=== PATIENT | female | born 1990 | race Caucasian/White ===

== ENCOUNTER 2019-03-25 08:27 | Emergency (ER) | payer BC ==
[2019-03-25] MEDS ORDERED: Sodium Chloride 0.9% 1,000 ML IV ONE (09:08)
--- NOTE | 2019-03-25 09:13 | EDM.PDOC ---
ED HPI GENERAL MEDICAL PROBLEM - General Chief Complaint: Syncope Stated Complaint: AMB Time Seen by Provider: 03/25/19 09:08 - History of Present Illness INITIAL COMMENTS - FREE TEXT/NARRATIVE: HISTORY AND PHYSICAL: History of present illness: Patient 28-year-old white female presents after a syncopal episode when standing in line. She has had similar episodes in the past of near syncope underwriting circumstances that have been self-limited she has seen a doctor for this and it was felt to be benign there was no associated trauma she denies chest pain palpitations shortness of breath denies or other concern. Review of systems: As per history of present illness and below otherwise all systems reviewed and negative. Past medical history: As per history of present illness and as reviewed below otherwise noncontributory. Surgical history: As per history of present illness and as reviewed below otherwise noncontributory. Social history: No reported history of drug or alcohol abuse. Family history: As per history of present illness and as reviewed below otherwise noncontributory. Physical exam: HEENT: Atraumatic, normocephalic, pupils reactive, negative for conjunctival pallor or scleral icterus, mucous membranes moist, throat clear, neck supple, nontender, trachea midline. Lungs: Clear to auscultation, breath sounds equal bilaterally, chest nontender. Heart: S1S2, regular, negative for clicks, rubs, or JVD. Abdomen: Soft, nondistended, nontender. Negative for masses or hepatosplenomegaly. Negative for costovertebral tenderness. Pelvis: Stable nontender. Genitourinary: Deferred. Rectal: Deferred. Extremities: Atraumatic, negative for cords or calf pain. Neurovascular unremarkable. Neuro: Awake, alert, oriented. Cranial nerves II through XII unremarkable. Cerebellum unremarkable. Motor and sensory unremarkable throughout. Exam nonfocal. Diagnostics: CBC CMP troponin PT/INR hCG UA chest x-ray EKG orthostatic vital signs Therapeutics: Saline 1 L bolus Impression: #1 syncope probable vasovagal episode Definitive disposition and diagnosis as appropriate pending reevaluation and review of above. 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: Reports: IV/IO - Related Data Allergies Allergy/AdvReac Type Severity Reaction Status Date / Time No Known Allergies Allergy Verified 03/25/19 08:37 Home Meds: Home Meds Control 1 dose PO DAILY 03/25/19 [History] Past Medical History - Past Health History Medical/Surgical History: Denies Medical/Surgical History - Infectious Disease History Infectious Disease History: Reports: Chicken Pox, Shingles Social & Family History - Family History Family Medical History: Noncontributory - Tobacco Use Smoking Status *Q: Never Smoker - Recreational Drug Use Recreational Drug Use: No ED ROS GENERAL - Review of Systems Review Of Systems: ROS reveals no pertinent complaints other than HPI. ED EXAM, GENERAL - Physical Exam Exam: See Below (See dictation) Course - Vital Signs Last Recorded V/S: Last Vital Signs Temp 36.1 C 03/25/19 10:09 Pulse 76 03/25/19 10:09 Resp 18 03/25/19 08:32 BP 102/70 03/25/19 10:09 Pulse Ox 100 03/25/19 10:09 Orthostatic Blood Pressure [ 107/77 Standing] Orthostatic Blood Pressure [ 112/69 Sitting] Orthostatic Blood Pressure [ 102/61 Supine] - Orders/Labs/Meds Orders: Active Orders 24 hr Category Date Time Status Cardiac Monitoring [RC] . DIRECTED Care 03/25/19 09:08 Active EKG 12 Lead [EKG Documentation Completion] [RC] STAT Care 03/25/19 08:35 Active Orthostatic Vital Signs [RC] ASDIRECTED Care 03/25/19 09:09 Active COMPREHENSIVE METABOLIC PN,CMP [CHEM] Stat Lab 03/25/19 09:25 Received Labs: Laboratory Tests 03/25/19 03/25/19 03/25/19 Range/Units 09:07 09:07 09:25 WBC 9.07 (4.0-11.0) K/uL RBC 4.34 (4.30-5.90) M/uL Hgb 12.9 (12.0-16.0) g/dL Hct 38.9 (36.0-46.0) % MCV 89.6 (80.0-98.0) fL MCH 29.7 (27.0-32.0) pg MCHC 33.2 (31.0-37.0) g/dL RDW Std Deviation 41.6 (28.0-62.0) fl RDW Coeff of [place] 13 (11.0-15.0) % Plt Count 242 (150-400) K/uL MPV 10.60 (7.40-12.00) fL Neut % (Auto) 75.8 (48.0-80.0) % Lymph % (Auto) 17.6 (16.0-40.0) % [place] % (Auto) 4.9 (0.0-15.0) % Eos % (Auto) 1.5 (0.0-7.0) % Baso % (Auto) 0.2 (0.0-1.5) % Neut # (Auto) 6.9 H (1.4-5.7) K/uL Lymph # (Auto) 1.6 (0.6-2.4) K/uL [place] # (Auto) 0.4 (0.0-0.8) K/uL Eos # (Auto) 0.1 (0.0-0.7) K/uL Baso # (Auto) 0.0 (0.0-0.1) K/uL Nucleated RBC % 0.0 /100WBC Nucleated RBCs # 0 K/uL INR Urine Color YELLOW Urine Appearance CLEAR Urine pH 6.5 (5.0-8.0) Ur Specific [place] 1.010 (1.001-1.035) Urine Protein NEGATIVE (NEGATIVE) mg/dL Urine Glucose (UA) NEGATIVE (NEGATIVE) mg/dL Urine Ketones NEGATIVE (NEGATIVE) mg/dL Urine Occult Blood NEGATIVE (NEGATIVE) Urine Nitrite NEGATIVE (NEGATIVE) Urine Bilirubin NEGATIVE (NEGATIVE) Urine Urobilinogen 0.2 (<2.0) EU/dL Ur Leukocyte Esterase NEGATIVE (NEGATIVE) Urine RBC NONE SEEN (0-2/HPF) Urine WBC 0-1 (0-5/HPF) Ur Epithelial Cells RARE (NONE-FEW) Urine Bacteria RARE (NEGATIVE) Urine HCG, Qual NEGATIVE (NEGATIVE) 03/25/19 Range/Units 09:25 WBC (4.0-11.0) K/uL RBC (4.30-5.90) M/uL Hgb (12.0-16.0) g/dL Hct (36.0-46.0) % MCV (80.0-98.0) fL MCH (27.0-32.0) pg MCHC (31.0-37.0) g/dL RDW Std Deviation (28.0-62.0) fl RDW Coeff of [place] (11.0-15.0) % Plt Count (150-400) K/uL MPV (7.40-12.00) fL Neut % (Auto) (48.0-80.0) % Lymph % (Auto) (16.0-40.0) % [place] % (Auto) (0.0-15.0) % Eos % (Auto) (0.0-7.0) % Baso % (Auto) (0.0-1.5) % Neut # (Auto) (1.4-5.7) K/uL Lymph # (Auto) (0.6-2.4) K/uL [place] # (Auto) (0.0-0.8) K/uL Eos # (Auto) (0.0-0.7) K/uL Baso # (Auto) (0.0-0.1) K/uL Nucleated RBC % /100WBC Nucleated RBCs # K/uL INR 0.97 Urine Color Urine Appearance Urine pH (5.0-8.0) Ur Specific [place] (1.001-1.035) Urine Protein (NEGATIVE) mg/dL Urine Glucose (UA) (NEGATIVE) mg/dL Urine Ketones (NEGATIVE) mg/dL Urine Occult Blood (NEGATIVE) Urine Nitrite (NEGATIVE) Urine Bilirubin (NEGATIVE) Urine Urobilinogen (<2.0) EU/dL Ur Leukocyte Esterase (NEGATIVE) Urine RBC (0-2/HPF) Urine WBC (0-5/HPF) Ur Epithelial Cells (NONE-FEW) Urine Bacteria (NEGATIVE) Urine HCG, Qual (NEGATIVE) Meds: Medications Discontinued Medications Generic Name Dose Route Start Last Admin Trade Name Freq PRN Reason Stop Dose Admin Sodium Chloride 1,000 mls @ 999 mls/hr 03/25/19 09:08 03/25/19 09:25 Normal Saline IV 03/25/19 10:08 999 mls/hr BOLUS ONE Administration Departure - Departure Time of Disposition: 10:14 Disposition: Home, Self-Care 01 Condition: Good Clinical Impression: Syncope - Discharge Information Referrals: PCP,None [Primary Care Provider] - Forms: ED Department Discharge Additional Instructions: The following information is given to patients seen in the emergency department who are being discharged to home. This information is to outline your options for follow-up care. We provide all patients seen in our emergency department with a follow-up referral. The need for follow-up, as well as the timing and circumstances, are variable depending upon the specifics of your emergency department visit. If you don't have a primary care physician on staff, we will provide you with a referral. We always advise you to contact your personal physician following an emergency department visit to inform them of the circumstance of the visit and for follow-up with them and/or the need for any referrals to a consulting specialist. The emergency department will also refer you to a specialist when appropriate. This referral assures that you have the opportunity for followup care with a specialist. All of these measure are taken in an effort to provide you with optimal care, which includes your followup. Under all circumstances we always encourage you to contact your private physician who remains a resource for coordinating your care. When calling for followup care, please make the office aware that this follow-up is from your recent emergency room visit. If for any reason you are refused follow-up, please contact the [facility] emergency department at and asked to speak to the emergency department charge nurse. Follow-up primary medical doctor as discussed push fluids return as needed as discussed - My Orders Last 24 Hours: My Active Orders 03/25/19 08:35 EKG 12 Lead [EKG Documentation Completion] [RC] STAT 03/25/19 09:08 Cardiac Monitoring [RC] . DIRECTED 03/25/19 09:09 Orthostatic Vital Signs [RC] ASDIRECTED 03/25/19 09:25 COMPREHENSIVE METABOLIC PN,CMP [CHEM] Stat - Assessment/Plan Last 24 Hours: My Active Orders 03/25/19 08:35 EKG 12 Lead [EKG Documentation Completion] [RC] STAT 03/25/19 09:08 Cardiac Monitoring [RC] . DIRECTED 03/25/19 09:09 Orthostatic Vital Signs [RC] ASDIRECTED 03/25/19 09:25 COMPREHENSIVE METABOLIC PN,CMP [CHEM] Stat
--- NOTE | 2019-03-25 10:03 | CR ---
EXAMINATION: Portable chest radiograph. HISTORY: Syncope. FINDINGS: The trachea is midline. The cardiomediastinal silhouette is within normal limits. No pulmonary infiltrates, effusions or pneumothorax. Osseous structures appear unremarkable. IMPRESSION: No acute cardiopulmonary process.
[2019-03-25 10:12] LABS: CHLORIDE,CL 107 mmol/L (98-107); SODIUM,NA 144 mmol/L (136-145)
== END 2019-03-25 12:52 | disposition home or self-care (01) ==
LOC: MW.ED 08:27
DX: R55 Syncope and collapse (principal); Z79.899 Other long term (current) drug therapy
CPT/HCPCS: 36415; 71045; 80053; 81001; 81025; 85025; 85610; 93005; 96360; 99284; J7040

== ENCOUNTER 2019-04-11 17:27 | Observation (INO) | payer BC ==
[2019-04-11] MEDS ORDERED: Sodium Chloride 0.9% 1,000 ML IV ONE (17:47)
[2019-04-11] MEDS: Sodium Chloride 0.9% 1,000 ML IV ONE ×2 (17:47→17:49)
[2019-04-11 18:13] LABS: CHLORIDE,CL 106 mmol/L (98-107); SODIUM,NA 142 mmol/L (136-145)
--- NOTE | 2019-04-11 19:04 | EDM.PDOC ---
ED HPI GENERAL MEDICAL PROBLEM - General Chief Complaint: Syncope Stated Complaint: FAINTING Time Seen by Provider: 04/11/19 19:02 Source of Information: Reports: Patient, EMS - History of Present Illness INITIAL COMMENTS - FREE TEXT/NARRATIVE: HISTORY AND PHYSICAL: History of present illness: []Patient was recently seen in the ER for syncopal episode She was at follow-up for syncope with her primary care B being drawn and she again had a syncopal episode which is a vagal however her blood pressure has been quite low while she was here on several occasions She is alert interactive no fever nausea vomiting chills sweats no chest pain shortness breath headache dizziness palpitation no bowel or urine symptoms Review of systems: As per history of present illness and below otherwise all systems reviewed and negative. Past medical history: As per history of present illness and as reviewed below otherwise noncontributory. Surgical history: As per history of present illness and as reviewed below otherwise noncontributory. Social history: No reported history of drug or alcohol abuse. Family history: As per history of present illness and as reviewed below otherwise noncontributory. Physical exam: HEENT: Atraumatic, normocephalic, pupils reactive, negative for conjunctival pallor or scleral icterus, mucous membranes moist, throat clear, neck supple, nontender, trachea midline. Lungs: Clear to auscultation, breath sounds equal bilaterally, chest nontender. Heart: S1S2, regular, negative for clicks, rubs, or JVD. Abdomen: Soft, nondistended, nontender. Negative for masses or hepatosplenomegaly. Negative for costovertebral tenderness. Pelvis: Stable nontender. Genitourinary: Deferred. Rectal: Deferred. Extremities: Atraumatic, negative for cords or calf pain. Neurovascular unremarkable. Neuro: Awake, alert, oriented. Cranial nerves II through XII unremarkable. Cerebellum unremarkable. Motor and sensory unremarkable throughout. Exam nonfocal. Diagnostics: [TBC CMP UA troponin blood cultures Orthostatics EKG Chest [address] no contrast ] Therapeutics: [ normal saline pt will be signed out to follow lab and imaging/dispo ] Impression Syncope Hypotension ] Definitive disposition and diagnosis as appropriate pending reevaluation and review of above. - Related Data Allergies Allergy/AdvReac Type Severity Reaction Status Date / Time No Known Allergies Allergy Verified 04/11/19 17:38 Home Meds: Home Meds Control 1 dose PO DAILY 03/25/19 [History] Past Medical History - Past Health History Medical/Surgical History: Denies Medical/Surgical History HEENT History: Reports: Impaired Vision, Other (See Below) Other HEENT History: wears glasses Cardiovascular History: Reports: Syncope - Infectious Disease History Infectious Disease History: Reports: Chicken Pox, Shingles - Past Surgical History HEENT Surgical History: Reports: Oral Surgery Social & Family History - Family History Family Medical History: Noncontributory - Tobacco Use Smoking Status *Q: Never Smoker - Recreational Drug Use Recreational Drug Use: No ED ROS GENERAL - Review of Systems Review Of Systems: See Below ED EXAM, GENERAL - Physical Exam Exam: See Below Course - Vital Signs Last Recorded V/S: Last Vital Signs Temp 97.4 F 04/11/19 17:27 Pulse 66 04/11/19 17:27 Resp 18 04/11/19 17:27 BP 60/32 L 04/11/19 17:52 Pulse Ox 100 04/11/19 17:27 - Orders/Labs/Meds Orders: Active Orders 24 hr Category Date Time Status Blood Glucose Check, Bedside [RC] ONETIME Care 04/11/19 17:51 Active EKG Documentation Completion [RC] STAT Care 04/11/19 17:31 Active Chest 1V Frontal [CR] Stat Exams 04/11/19 17:32 Ordered Head wo Cont [CT] Stat Exams 04/11/19 17:39 Ordered CULTURE BLOOD [BC] Stat Lab 04/11/19 18:52 Ordered CULTURE BLOOD [BC] Stat Lab 04/11/19 18:52 Ordered HCG QUALITATIVE,URINE [URCHEM] Stat Lab 04/11/19 17:32 Ordered UA RFX AYANA AND CULT IF INDIC [URIN] Stat Lab 04/11/19 17:31 Ordered Blood Culture x2 Reflex Set [OM.PC] Stat Oth 04/11/19 18:52 Ordered Labs: Laboratory Tests 04/11/19 04/11/19 Range/Units 17:38 17:38 WBC 7.13 (4.0-11.0) K/uL RBC 4.34 (4.30-5.90) M/uL Hgb 12.8 (12.0-16.0) g/dL Hct 38.7 (36.0-46.0) % MCV 89.2 (80.0-98.0) fL MCH 29.5 (27.0-32.0) pg MCHC 33.1 (31.0-37.0) g/dL RDW Std Deviation 41.8 (28.0-62.0) fl RDW Coeff of [place] 13 (11.0-15.0) % Plt Count 279 (150-400) K/uL MPV 10.00 (7.40-12.00) fL Neut % (Auto) 44.7 L (48.0-80.0) % Lymph % (Auto) 47.3 H (16.0-40.0) % [place] % (Auto) 6.2 (0.0-15.0) % Eos % (Auto) 1.5 (0.0-7.0) % Baso % (Auto) 0.3 (0.0-1.5) % Neut # (Auto) 3.2 (1.4-5.7) K/uL Lymph # (Auto) 3.4 H (0.6-2.4) K/uL [place] # (Auto) 0.4 (0.0-0.8) K/uL Eos # (Auto) 0.1 (0.0-0.7) K/uL Baso # (Auto) 0.0 (0.0-0.1) K/uL Nucleated RBC % 0.0 /100WBC Nucleated RBCs # 0 K/uL Sodium 142 (136-145) mmol/L Potassium 3.1 L (3.5-5.1) mmol/L Chloride 106 (98-107) mmol/L Carbon Dioxide 23.0 (21.0-32.0) mmol/L BUN 13 (7.0-18.0) mg/dL Creatinine 1.0 (0.6-1.0) mg/dL Est Cr Clr Drug Dosing 71.68 mL/min Estimated GFR (MDRD) > 60.0 ml/min Glucose 114 H (74-106) mg/dL Calcium 9.7 (8.5-10.1) mg/dL Total Bilirubin 0.3 (0.2-1.0) mg/dL AST 13 L (15-37) IU/L ALT 17 (14-63) IU/L Alkaline Phosphatase 52 (46-116) U/L Troponin I < 0.050 (0.000-0.056) ng/mL Total Protein 7.7 (6.4-8.2) g/dL Albumin 4.0 (3.4-5.0) g/dL Globulin 3.7 (2.6-4.0) g/dL Albumin/Globulin Ratio 1.1 (0.9-1.6) Meds: Medications Discontinued Medications Generic Name Dose Route Start Last Admin Trade Name Freq PRN Reason Stop Dose Admin Sodium Chloride 1,000 mls @ 999 mls/hr 04/11/19 17:31 04/11/19 17:49 Normal Saline IV 04/11/19 18:31 999 mls/hr STAT ONE Administration Sodium Chloride 1,000 mls @ 999 mls/hr 04/11/19 17:47 04/11/19 17:50 Normal Saline IV 04/11/19 18:47 999 mls/hr .Bolus ONE Administration Departure - Departure Time of Disposition: 19:05 Disposition: Still A Patient 29 Clinical Impression: Syncope, Hypotension - Discharge Information Referrals: PCP,None [Primary Care Provider] - Forms: ED Department Discharge - My Orders Last 24 Hours: My Active Orders 04/11/19 17:31 EKG Documentation Completion [RC] STAT UA RFX AYANA AND CULT IF INDIC [URIN] Stat 04/11/19 17:32 Chest 1V Frontal [CR] Stat HCG QUALITATIVE,URINE [URCHEM] Stat 04/11/19 17:39 Head wo Cont [CT] Stat 04/11/19 17:51 Blood Glucose Check, Bedside [RC] ONETIME 04/11/19 18:52 CULTURE BLOOD [BC] Stat CULTURE BLOOD [BC] Stat Blood Culture x2 Reflex Set [OM.PC] Stat - Assessment/Plan Last 24 Hours: My Active Orders 04/11/19 17:31 EKG Documentation Completion [RC] STAT UA RFX AYANA AND CULT IF INDIC [URIN] Stat 04/11/19 17:32 Chest 1V Frontal [CR] Stat HCG QUALITATIVE,URINE [URCHEM] Stat 04/11/19 17:39 Head wo Cont [CT] Stat 04/11/19 17:51 Blood Glucose Check, Bedside [RC] ONETIME 04/11/19 18:52 CULTURE BLOOD [BC] Stat CULTURE BLOOD [BC] Stat Blood Culture x2 Reflex Set [OM.PC] Stat
--- NOTE | 2019-04-11 20:00 | CT ---
INDICATION: Two recent syncopal episodes.. TECHNIQUE: CT Head without contrast. COMPARISON: None. FINDINGS: CSF spaces: Within normal limits for age. Brain parenchyma: The elder-white differentiation is normal. No sign of mass, hemorrhage, or midline shift. Skull base and calvarium: Small dependent fluid levels in the maxillary sinuses bilaterally.. The visualized orbits are grossly unremarkable. No skull fractures. . IMPRESSION: No intracranial finding. Small air-fluid levels in the dependent maxillary sinuses may be acute sinusitis. Posttraumatic etiology should be excluded clinically. Please note that all CT scans at this facility use dose modulation, iterative reconstruction, and/or weight-based dosing when appropriate to reduce radiation dose to as low as reasonably achievable. Dictated by Donte Santiago MD @ Apr 11 2019 7:56PM Signed by Dr. Donte Santiago @ Apr 11 2019 7:58PM
--- NOTE | 2019-04-11 20:01 | CR ---
INDICATION: Syncope TECHNIQUE: Chest 1 views COMPARISON: 03/25/2019 FINDINGS: Cardiovascular and mediastinum: Heart size and vasculature are normal in caliber and appearance. Lungs and pleural spaces: Lungs are clear. No sign of infiltrate or mass. No sign of pleural effusion. No pneumothorax. Bones and soft tissues: No significant findings. IMPRESSION: No acute findings and no significant changes from the prior exam. Dictated by Mario Nowak MD @ Apr 11 2019 7:58PM Signed by Dr. Mario Nowak @ Apr 11 2019 8:00PM
[2019-04-11] MEDS: Sodium Chloride 0.9% 1,000 ML IV SCH (20:17)
[2019-04-11] MEDS ORDERED: Potassium Chloride 20 MEQ Tab.ER PO ONE (20:17)
--- NOTE | 2019-04-11 20:45 | PCM.HP ---
H&P History of Present Illness - General Admit Problem/Dx: Admission Diagnosis/Problem Admission Diagnosis/Problem Syncope - History of Present Illness Initial Comments - Free Text/Narative: Patient presented to clinic today with a complaint of syncope three weeks ago. Patient ate at [employer] and passed out while standing up to go pay for breakfast. Patient report she felt hot then cold and vision blurred before passing out. While in clinic getting blood drawn she passed out again while sitting. in the ED she was noted to have a blood pressure of 54/27 which did improve to the 100s. She did receive a liter of fluid. CT head and chest x- ray were negative. Patient reports passing out about every five years at home. - Related Data Allergies/Adverse Reactions: Allergies Allergy/AdvReac Type Severity Reaction Status Date / Time No Known Allergies Allergy Verified 04/11/19 17:38 Home Medications: Home Meds Control 1 dose PO DAILY 03/25/19 [History] Past Medical History - Past Health History Medical/Surgical History: Denies Medical/Surgical History HEENT History: Reports: Impaired Vision, Other (See Below) Other HEENT History: wears glasses Cardiovascular History: Reports: Syncope - Infectious Disease History Infectious Disease History: Reports: Chicken Pox, Shingles - Past Surgical History HEENT Surgical History: Reports: Oral Surgery Social & Family History - Family History Family Medical History: Noncontributory - Tobacco Use Smoking Status *Q: Never Smoker - Recreational Drug Use Recreational Drug Use: No H&P Review of Systems - Review of Systems: Review Of Systems: ROS reveals no pertinent complaints other than HPI. Exam - Vital Signs Vital Signs: Last Vital Signs Temp 36.3 C 04/11/19 17:27 Pulse 66 04/11/19 17:27 Resp 16 04/11/19 19:05 BP 103/68 04/11/19 19:05 Pulse Ox 99 04/11/19 19:05 Orthostatic Blood Pressure [ 93/69 Standing] Orthostatic Blood Pressure [ 106/68 Sitting] Orthostatic Blood Pressure [ 113/72 Supine] Weight: 61.235 kg - Exam General: Alert, Oriented HEENT: Mucosa Moist & [place] Neck: Supple Lungs: Clear to Auscultation, Normal Respiratory Effort Cardiovascular: Regular Rate, Regular Rhythm GI/Abdominal Exam: Normal Bowel Sounds, Soft, Non-Tender Extremities: Normal Range of Motion, Non-Tender Skin: Warm, Dry, Intact Neurological: Cranial Nerves Intact. No: Focal Deficit - Patient Data Lab Results Last 24 hrs: Laboratory Results - last 24 hr 04/11/19 04/11/19 04/11/19 Range/Units 17:38 17:38 19:00 WBC 7.13 (4.0-11.0) K/uL RBC 4.34 (4.30-5.90) M/uL Hgb 12.8 (12.0-16.0) g/dL Hct 38.7 (36.0-46.0) % MCV 89.2 (80.0-98.0) fL MCH 29.5 (27.0-32.0) pg MCHC 33.1 (31.0-37.0) g/dL RDW Std Deviation 41.8 (28.0-62.0) fl RDW Coeff of Barby 13 (11.0-15.0) % Plt Count 279 (150-400) K/uL MPV 10.00 (7.40-12.00) fL Neut % (Auto) 44.7 L (48.0-80.0) % Lymph % (Auto) 47.3 H (16.0-40.0) % [place] % (Auto) 6.2 (0.0-15.0) % Eos % (Auto) 1.5 (0.0-7.0) % Baso % (Auto) 0.3 (0.0-1.5) % Neut # (Auto) 3.2 (1.4-5.7) K/uL Lymph # (Auto) 3.4 H (0.6-2.4) K/uL [place] # (Auto) 0.4 (0.0-0.8) K/uL Eos # (Auto) 0.1 (0.0-0.7) K/uL Baso # (Auto) 0.0 (0.0-0.1) K/uL Nucleated RBC % 0.0 /100WBC Nucleated RBCs # 0 K/uL Sodium 142 (136-145) mmol/L Potassium 3.1 L (3.5-5.1) mmol/L Chloride 106 (98-107) mmol/L Carbon Dioxide 23.0 (21.0-32.0) mmol/L BUN 13 (7.0-18.0) mg/dL Creatinine 1.0 (0.6-1.0) mg/dL Est Cr Clr Drug Dosing 71.68 mL/min Estimated GFR (MDRD) > 60.0 ml/min Glucose 114 H (74-106) mg/dL Calcium 9.7 (8.5-10.1) mg/dL Magnesium (1.8-2.4) mg/dL Total Bilirubin 0.3 (0.2-1.0) mg/dL AST 13 L (15-37) IU/L ALT 17 (14-63) IU/L Alkaline Phosphatase 52 (46-116) U/L Troponin I < 0.050 (0.000-0.056) ng/mL Total Protein 7.7 (6.4-8.2) g/dL Albumin 4.0 (3.4-5.0) g/dL Globulin 3.7 (2.6-4.0) g/dL Albumin/Globulin Ratio 1.1 (0.9-1.6) Urine Color YELLOW Urine Appearance CLEAR Urine pH 6.5 (5.0-8.0) Ur Specific [place] <= 1.005 (1.001-1.035) Urine Protein NEGATIVE (NEGATIVE) mg/dL Urine Glucose (UA) NEGATIVE (NEGATIVE) mg/dL Urine Ketones NEGATIVE (NEGATIVE) mg/dL Urine Occult Blood NEGATIVE (NEGATIVE) Urine Nitrite NEGATIVE (NEGATIVE) Urine Bilirubin NEGATIVE (NEGATIVE) Urine Urobilinogen 0.2 (<2.0) EU/dL Ur Leukocyte Esterase NEGATIVE (NEGATIVE) Urine HCG, Qual (NEGATIVE) 04/11/19 04/11/19 Range/Units 19:00 19:20 WBC (4.0-11.0) K/uL RBC (4.30-5.90) M/uL Hgb (12.0-16.0) g/dL Hct (36.0-46.0) % MCV (80.0-98.0) fL MCH (27.0-32.0) pg MCHC (31.0-37.0) g/dL RDW Std Deviation (28.0-62.0) fl RDW Coeff of Barby (11.0-15.0) % Plt Count (150-400) K/uL MPV (7.40-12.00) fL Neut % (Auto) (48.0-80.0) % Lymph % (Auto) (16.0-40.0) % [place] % (Auto) (0.0-15.0) % Eos % (Auto) (0.0-7.0) % Baso % (Auto) (0.0-1.5) % Neut # (Auto) (1.4-5.7) K/uL Lymph # (Auto) (0.6-2.4) K/uL [place] # (Auto) (0.0-0.8) K/uL Eos # (Auto) (0.0-0.7) K/uL Baso # (Auto) (0.0-0.1) K/uL Nucleated RBC % /100WBC Nucleated RBCs # K/uL Sodium (136-145) mmol/L Potassium (3.5-5.1) mmol/L Chloride (98-107) mmol/L Carbon Dioxide (21.0-32.0) mmol/L BUN (7.0-18.0) mg/dL Creatinine (0.6-1.0) mg/dL Est Cr Clr Drug Dosing mL/min Estimated GFR (MDRD) ml/min Glucose (74-106) mg/dL Calcium (8.5-10.1) mg/dL Magnesium 1.8 (1.8-2.4) mg/dL Total Bilirubin (0.2-1.0) mg/dL AST (15-37) IU/L ALT (14-63) IU/L Alkaline Phosphatase (46-116) U/L Troponin I (0.000-0.056) ng/mL Total Protein (6.4-8.2) g/dL Albumin (3.4-5.0) g/dL Globulin (2.6-4.0) g/dL Albumin/Globulin Ratio (0.9-1.6) Urine Color Urine Appearance Urine pH (5.0-8.0) Ur Specific [place] (1.001-1.035) Urine Protein (NEGATIVE) mg/dL Urine Glucose (UA) (NEGATIVE) mg/dL Urine Ketones (NEGATIVE) mg/dL Urine Occult Blood (NEGATIVE) Urine Nitrite (NEGATIVE) Urine Bilirubin (NEGATIVE) Urine Urobilinogen (<2.0) EU/dL Ur Leukocyte Esterase (NEGATIVE) Urine HCG, Qual NEGATIVE (NEGATIVE) Result Diagrams: 04/11/19 17:38 04/11/19 17:38 Problem List Initiated/Reviewed/Updated: Yes Orders Last 24hrs: Active Orders 24 hr Category Date Time Status Patient Status [ADT] Stat ADT 04/11/19 19:54 Active Antiembolic Devices [RC] PER UNIT ROUTINE Care 04/11/19 20:40 Ordered Blood Glucose Check, Bedside [RC] ONETIME Care 04/11/19 17:51 Active Cardiac Monitoring [RC] CONTINUOUS Care 04/11/19 20:38 Ordered EKG Documentation Completion [RC] AM Care 04/11/19 20:37 Ordered EKG Documentation Completion [RC] STAT Care 04/11/19 17:31 Active Orthostatic Vital Signs [RC] ASDIRECTED Care 04/11/19 19:40 Active Oxygen Therapy [RC] PRN Care 04/11/19 20:37 Ordered Up ad Vicky [RC] ASDIRECTED Care 04/11/19 20:37 Ordered VTE/DVT Education [RC] PER UNIT ROUTINE Care 04/11/19 20:37 Ordered Vital Signs [RC] Q4H Care 04/11/19 20:37 Ordered Regular Diet [DIET] Diet 04/11/19 Breakfast Ordered Echo Comp wo Cont [US] Routine Exams 04/11/19 20:37 Ordered CULTURE BLOOD [BC] Stat Lab 04/11/19 18:52 Ordered CULTURE BLOOD [BC] Stat Lab 04/11/19 19:20 Received Sodium Chloride 0.9% [Normal Saline] 1,000 ml Med 04/11/19 20:15 Active IV ASDIRECTED Blood Culture x2 Reflex Set [OM.PC] Stat Oth 04/11/19 18:52 Ordered Sequential Compression Device [OM.PC] Per Unit Routine Oth 04/11/19 20:37 Ordered Resuscitation Status Routine Resus Stat 04/11/19 20:37 Ordered Medication Orders Sodium Chloride (Normal Saline) 1,000 mls @ 150 mls/hr IV ASDIRECTED VERN Last Admin: 04/11/19 20:17 Dose: 150 mls/hr Assessment/Plan Comment:: 28 yo female admitted for syncope. We will monitor overnight on telemetry. Echocardiogram ordered.
[2019-04-12] MEDS: Sodium Chloride 0.9% 1,000 ML IV SCH ×2 (03:00→09:46)
[2019-04-12 08:51] LABS: CHLORIDE,CL 108 mmol/L (98-107); SODIUM,NA 140 mmol/L (136-145)
--- NOTE | 2019-04-12 16:06 | PCM.DCSUM1 ---
Discharge Summary - Hospital Course Brief History: Patient presented to clinic today with a complaint of syncope three weeks ago. Patient ate at [employer] and passed out while standing up to go pay for breakfast. Patient report she felt hot then cold and vision blurred before passing out. While in clinic getting blood drawn she passed out again while sitting. in the ED she was noted to have a blood pressure of 54/27 which did improve to the 100s. She did receive a liter of fluid. CT head and chest x -ray were negative. Patient reports passing out about every five years at home. Diagnosis: Stroke: No - Discharge Data Discharge Date: 04/12/19 Discharge Disposition: Home, Self-Care 01 Condition: Good - Discharge Diagnosis/Problem(s) (1) Hypotension SNOMED Code(s): 02478248 ICD Code: I95.9 - HYPOTENSION, UNSPECIFIED Status: Acute Current Visit: Yes (2) Syncope SNOMED Code(s): 972445808 ICD Code: R55 - SYNCOPE AND COLLAPSE Status: Acute Current Visit: Yes - Patient Instructions Diet: Regular Diet as Tolerated Activity: As Tolerated Driving: Do Not Drive Showering/Bathing: May Shower Notify Provider of: Fever, Increased Pain, Swelling and Redness, Drainage, Nausea and/or Vomiting Other/Special Instructions: Order for Zio pacth written please call to arrange appointment for this to be placed once you return to the by calling respiratory therapy, . - Discharge Plan *PRESCRIPTION DRUG MONITORING PROGRAM REVIEWED*: Not Applicable *COPY OF PRESCRIPTION DRUG MONITORING REPORT IN PATIENT DANA: Not Applicable Home Medications: Home Meds Control 1 dose PO DAILY 03/25/19 [History] Oxygen Therapy Mode: Room Air Patient Handouts: Hypotension, [id number], Syncope, [id number] Referrals: [facility] [Outside] Alisa Enriquez NP [Ordering Only Provider] - 04/18/19 12:45 pm - Discharge Summary/Plan Comment DC Time >30 min.: No Discharge Summary/Plan Comment: Admitting Diagnoses: Syncope Discharge Diagnoses: Suspected Vasovagal syncopal episode Raoul Farris was admitted and treated with potassium supplementation and IVFs overnight. No recurrent episodes of syncope. No arrhythmias noted on telemetry. BPs stable and orthostatic VS WNL this morning. Dr Javier was consulted to evaluate due to QTc and syncope. Please see his consultation. Kaleigh will return for outpatient carotid ultrasound and for ZIO patch to be placed for further monitoring. She will be scheduled to see Dr Javier after Zio patch assessment and to follow up with PCP in 1 week prior to leaving the country for trip to insure she is stable. She is to return to ED or clinic if concerns should arise. - General Info Date of Service: 04/12/19 Admission Dx/Problem (Free Text: Admission Diagnosis/Problem Admission Diagnosis/Problem Syncope Subjective Update: Feeling good this morning, no concerns. Very eager to be discharged home. Functional Status: Reports: Pain Controlled, Tolerating Diet, Ambulating, Urinating - Review of Systems General: Reports: No Symptoms. Denies: Fever, Weakness, Fatigue HEENT: Reports: No Symptoms. Denies: Headaches, Sore Throat Pulmonary: Reports: No Symptoms. Denies: Shortness of Breath Cardiovascular: Reports: No Symptoms. Denies: Chest Pain Gastrointestinal: Reports: No Symptoms. Denies: Abdominal Pain, Nausea, Vomiting Genitourinary: Reports: No Symptoms. Denies: Dysuria, Frequency, Burning Musculoskeletal: Reports: No Symptoms Skin: Reports: No Symptoms Neurological: Reports: No Symptoms Psychiatric: Reports: No Symptoms - Patient Data Vitals - Most Recent: Last Vital Signs Temp 97.7 F 04/12/19 12:00 Pulse 79 04/12/19 12:00 Resp 16 04/12/19 12:00 BP 107/65 04/12/19 12:00 Pulse Ox 99 04/12/19 12:00 Orthostatic Blood Pressure [ 104/58 Standing] Orthostatic Blood Pressure [ 108/67 Sitting] Orthostatic Blood Pressure [ 113/71 Supine] Weight - Most Recent: 61.235 kg I&O - Last 24 hours: Intake & Output 04/12/19 04/12/19 04/12/19 06:59 14:59 22:59 Intake Total 1386 Balance 1386 Lab Results - Last 24 hrs: Laboratory Results - last 24 hr 04/11/19 04/11/19 04/11/19 Range/Units 17:32 17:38 17:38 WBC 7.13 (4.0-11.0) K/uL RBC 4.34 (4.30-5.90) M/uL Hgb 12.8 (12.0-16.0) g/dL Hct 38.7 (36.0-46.0) % MCV 89.2 (80.0-98.0) fL MCH 29.5 (27.0-32.0) pg MCHC 33.1 (31.0-37.0) g/dL RDW Std Deviation 41.8 (28.0-62.0) fl RDW Coeff of Barby 13 (11.0-15.0) % Plt Count 279 (150-400) K/uL MPV 10.00 (7.40-12.00) fL Neut % (Auto) 44.7 L (48.0-80.0) % Lymph % (Auto) 47.3 H (16.0-40.0) % [place] % (Auto) 6.2 (0.0-15.0) % Eos % (Auto) 1.5 (0.0-7.0) % Baso % (Auto) 0.3 (0.0-1.5) % Neut # (Auto) 3.2 (1.4-5.7) K/uL Lymph # (Auto) 3.4 H (0.6-2.4) K/uL [place] # (Auto) 0.4 (0.0-0.8) K/uL Eos # (Auto) 0.1 (0.0-0.7) K/uL Baso # (Auto) 0.0 (0.0-0.1) K/uL Nucleated RBC % 0.0 /100WBC Nucleated RBCs # 0 K/uL Sodium 142 (136-145) mmol/L Potassium 3.1 L (3.5-5.1) mmol/L Chloride 106 (98-107) mmol/L Carbon Dioxide 23.0 (21.0-32.0) mmol/L BUN 13 (7.0-18.0) mg/dL Creatinine 1.0 (0.6-1.0) mg/dL Est Cr Clr Drug Dosing 71.68 mL/min Estimated GFR (MDRD) > 60.0 ml/min Glucose 114 H (74-106) mg/dL POC Glucose 110 (60-110) mg/dL Calcium 9.7 (8.5-10.1) mg/dL Magnesium (1.8-2.4) mg/dL Total Bilirubin 0.3 (0.2-1.0) mg/dL AST 13 L (15-37) IU/L ALT 17 (14-63) IU/L Alkaline Phosphatase 52 (46-116) U/L Troponin I < 0.050 (0.000-0.056) ng/mL Total Protein 7.7 (6.4-8.2) g/dL Albumin 4.0 (3.4-5.0) g/dL Globulin 3.7 (2.6-4.0) g/dL Albumin/Globulin Ratio 1.1 (0.9-1.6) Urine Color Urine Appearance Urine pH (5.0-8.0) Ur Specific [place] (1.001-1.035) Urine Protein (NEGATIVE) mg/dL Urine Glucose (UA) (NEGATIVE) mg/dL Urine Ketones (NEGATIVE) mg/dL Urine Occult Blood (NEGATIVE) Urine Nitrite (NEGATIVE) Urine Bilirubin (NEGATIVE) Urine Urobilinogen (<2.0) EU/dL Ur Leukocyte Esterase (NEGATIVE) Urine HCG, Qual (NEGATIVE) 04/11/19 04/11/19 04/11/19 Range/Units 19:00 19:00 19:20 WBC (4.0-11.0) K/uL RBC (4.30-5.90) M/uL Hgb (12.0-16.0) g/dL Hct (36.0-46.0) % MCV (80.0-98.0) fL MCH (27.0-32.0) pg MCHC (31.0-37.0) g/dL RDW Std Deviation (28.0-62.0) fl RDW Coeff of Barby (11.0-15.0) % Plt Count (150-400) K/uL MPV (7.40-12.00) fL Neut % (Auto) (48.0-80.0) % Lymph % (Auto) (16.0-40.0) % [place] % (Auto) (0.0-15.0) % Eos % (Auto) (0.0-7.0) % Baso % (Auto) (0.0-1.5) % Neut # (Auto) (1.4-5.7) K/uL Lymph # (Auto) (0.6-2.4) K/uL [place] # (Auto) (0.0-0.8) K/uL Eos # (Auto) (0.0-0.7) K/uL Baso # (Auto) (0.0-0.1) K/uL Nucleated RBC % /100WBC Nucleated RBCs # K/uL Sodium (136-145) mmol/L Potassium (3.5-5.1) mmol/L Chloride (98-107) mmol/L Carbon Dioxide (21.0-32.0) mmol/L BUN (7.0-18.0) mg/dL Creatinine (0.6-1.0) mg/dL Est Cr Clr Drug Dosing mL/min Estimated GFR (MDRD) ml/min Glucose (74-106) mg/dL POC Glucose (60-110) mg/dL Calcium (8.5-10.1) mg/dL Magnesium 1.8 (1.8-2.4) mg/dL Total Bilirubin (0.2-1.0) mg/dL AST (15-37) IU/L ALT (14-63) IU/L Alkaline Phosphatase (46-116) U/L Troponin I (0.000-0.056) ng/mL Total Protein (6.4-8.2) g/dL Albumin (3.4-5.0) g/dL Globulin (2.6-4.0) g/dL Albumin/Globulin Ratio (0.9-1.6) Urine Color YELLOW Urine Appearance CLEAR Urine pH 6.5 (5.0-8.0) Ur Specific [place] <= 1.005 (1.001-1.035) Urine Protein NEGATIVE (NEGATIVE) mg/dL Urine Glucose (UA) NEGATIVE (NEGATIVE) mg/dL Urine Ketones NEGATIVE (NEGATIVE) mg/dL Urine Occult Blood NEGATIVE (NEGATIVE) Urine Nitrite NEGATIVE (NEGATIVE) Urine Bilirubin NEGATIVE (NEGATIVE) Urine Urobilinogen 0.2 (<2.0) EU/dL Ur Leukocyte Esterase NEGATIVE (NEGATIVE) Urine HCG, Qual NEGATIVE (NEGATIVE) 04/12/19 Range/Units 08:26 WBC (4.0-11.0) K/uL RBC (4.30-5.90) M/uL Hgb (12.0-16.0) g/dL Hct (36.0-46.0) % MCV (80.0-98.0) fL MCH (27.0-32.0) pg MCHC (31.0-37.0) g/dL RDW Std Deviation (28.0-62.0) fl RDW Coeff of Barby (11.0-15.0) % Plt Count (150-400) K/uL MPV (7.40-12.00) fL Neut % (Auto) (48.0-80.0) % Lymph % (Auto) (16.0-40.0) % Bent % (Auto) (0.0-15.0) % Eos % (Auto) (0.0-7.0) % Baso % (Auto) (0.0-1.5) % Neut # (Auto) (1.4-5.7) K/uL Lymph # (Auto) (0.6-2.4) K/uL Bent # (Auto) (0.0-0.8) K/uL Eos # (Auto) (0.0-0.7) K/uL Baso # (Auto) (0.0-0.1) K/uL Nucleated RBC % /100WBC Nucleated RBCs # K/uL Sodium 140 (136-145) mmol/L Potassium 4.1 (3.5-5.1) mmol/L Chloride 108 H (98-107) mmol/L Carbon Dioxide 21.9 (21.0-32.0) mmol/L BUN 7 (7.0-18.0) mg/dL Creatinine 0.6 (0.6-1.0) mg/dL Est Cr Clr Drug Dosing 119.47 mL/min Estimated GFR (MDRD) > 60.0 ml/min Glucose 89 (74-106) mg/dL POC Glucose (60-110) mg/dL Calcium 8.9 (8.5-10.1) mg/dL Magnesium 2.1 (1.8-2.4) mg/dL Total Bilirubin (0.2-1.0) mg/dL AST (15-37) IU/L ALT (14-63) IU/L Alkaline Phosphatase (46-116) U/L Troponin I (0.000-0.056) ng/mL Total Protein (6.4-8.2) g/dL Albumin (3.4-5.0) g/dL Globulin (2.6-4.0) g/dL Albumin/Globulin Ratio (0.9-1.6) Urine Color Urine Appearance Urine pH (5.0-8.0) Ur Specific Rousseau (1.001-1.035) Urine Protein (NEGATIVE) mg/dL Urine Glucose (UA) (NEGATIVE) mg/dL Urine Ketones (NEGATIVE) mg/dL Urine Occult Blood (NEGATIVE) Urine Nitrite (NEGATIVE) Urine Bilirubin (NEGATIVE) Urine Urobilinogen (<2.0) EU/dL Ur Leukocyte Esterase (NEGATIVE) Urine HCG, Qual (NEGATIVE) Med Orders - Current: Current Medications Sodium Chloride (Normal Saline) 1,000 mls @ 150 mls/hr IV ASDIRECTED [facility] Last Admin: 04/12/19 09:46 Dose: 150 mls/hr Discontinued Medications Sodium Chloride (Normal Saline) 1,000 mls @ 999 mls/hr IV STAT ONE Stop: 04/11/19 18:31 Last Admin: 04/11/19 17:49 Dose: 999 mls/hr Sodium Chloride (Normal Saline) 1,000 mls @ 999 mls/hr IV .Bolus ONE Stop: 04/11/19 18:47 Last Admin: 04/11/19 17:50 Dose: 999 mls/hr Potassium Chloride (Klor-Con M20) 40 meq PO ONETIME ONE Stop: 04/11/19 20:18 Last Admin: 04/11/19 21:30 Dose: 40 meq - Exam General: Reports: Alert, Oriented, Cooperative, No Acute Distress Neck: Reports: Supple Lungs: Reports: Clear to Auscultation, Normal Respiratory Effort Cardiovascular: Reports: Regular Rate, Regular Rhythm GI/Abdominal Exam: Normal Bowel Sounds, Soft, Non-Tender, No Organomegaly Extremities: Normal Inspection, Normal Range of Motion, Non-Tender, No Pedal Edema Neurological: Reports: No New Focal Deficit Psy/Mental Status: Reports: Alert, Normal Affect, Normal Mood
--- NOTE | 2019-04-12 16:12 | CONS ---
DATE OF CONSULTATION: DATE OF : 1990 PRIMARY CARE PHYSICIAN: None PCP REASON FOR CONSULTATION: Passing out. HISTORY OF PRESENT ILLNESS: This is a 28-year-old female without prior cardiac history. She presented to the hospital from the clinic because of passing out while after the blood drawn. She was in the clinic in [facility] for the recent episode of passing out while she was getting the blood drawn and she has been feeling hot and cold and it was brief within a minute and then she started feeling sweaty and clammy, and then she passed out. She was noted to have low blood pressure 50/20, heart rate of 80, and she also had some seizure movement as well, and then she was brought to the emergency room. In the emergency room, the blood pressure was low at 54/27. She also had the orthostatic vital signs checked and it was showing positive for hypotension dropping from 113/72 to 93/69 with a heart rate of 82 and 81, and then she was given the IV fluid and the orthostatic turned out to be negative afterwards. She also was found to have hypokalemia with potassium of 3.1. She also got replaced with potassium supplement already. She also mentioned about the previous episode of passing out which was 3 weeks ago when she was at the restaurant after she was having breakfast, she was standing, paying her bills, she started having hot and cold symptoms, clammy, sweaty, and then she tried to sit down on the floor, and then all of a sudden, she went down, and the downtime was about less than a minute, and then she came back to it. She was lying on the floor. No seizure movement at that time. She felt tired for another 2 minutes, and then she felt back to normal. When she was trying to stand, she felt like she was going to pass out again, and then she was recommended to see a doctor. Last year in July 2018 when she got the flu shot, tetanus shot, right after she had it done, she passed out. She had this similar reaction which is hot and cold feeling and then she passed out as well. Five years ago, she also had the passing out episode when she was trying to poop, trying to have a bowel movement. Otherwise, denies other medical history. No chest pain. No shortness of breath. PAST MEDICAL HISTORY: Including none. PAST SURGICAL HISTORY: None. TITLE CHECKER HISTORY: She had her period today which was normal interval, normal in duration. She is on control pill and not missing any dose. ALLERGIES: No known drug allergies. SOCIAL HISTORY: Denies drug use, alcohol consumption, or smoking. FAMILY HISTORY: Her uncle had a history of bradycardia. Her distant cousin has a history of syndrome. REVIEW OF SYSTEMS: Has been negative except as indicated in HPI. PHYSICAL EXAMINATION: VITAL SIGNS: The initial blood pressure was 113/72, heart rate of 82, and the orthostatic vital signs were positive, dropping from 113 to 93. HEENT: Not pale. No jaundice. NECK: No JVD. HEART: Normal S1, S2. No murmur, but she has positive bruits on the right neck area. LUNGS: Clear. No crackle. ABDOMEN: Soft, nontender. Bowel sounds are present. No hepatosplenomegaly. EXTREMITIES: Legs, no edema. INVESTIGATIONS: CBC showed WBC 7, hematocrit of 38, platelet of 279. Sodium 142, potassium 3.1, replaced, and it is rising to 4.1, BUN 13, creatinine 1.0, and liver function test is normal. Echocardiogram showed preserved ejection fraction of 65% to 70%. No significant valvular problem. EKG on April 11, 2019, 9 p.m., shows sinus rhythm, heart rate of 67, QRS duration 94, FL interval 159, QTc 436, and EKG on April 12, 2019, heart rate of 86, FL interval 151, QRS duration 93, QTc interval 443. ASSESSMENT AND PLAN: This is a 28-year-old female without prior cardiac history with recurrent syncope. From the story I got from the patient, it sounds to be vasovagal syncope. She should not drive for 6 months according to [place] [employer] law, and she was recommended to wear compression stockings, stay hydrated. Her passing out could be contributed from dehydration as well. Regarding her QTc, it seemed to be within normal limits. Recommended to also do the heart monitor and Zio patch for 2 weeks. She is planning to go to [facility]. She would prefer to put the patch on when she came back to the [facility]. I would also do the carotid ultrasound to make sure there is no carotid bruit. DIANNA / CANDY /[id number]
== END 2019-04-12 16:36 | disposition home or self-care (01) ==
LOC: MW.ED 17:27 → MW.MS 19:59
PROVIDERS: ADMIT Internal Medicine; ATTEND Internal Medicine
DX: R55 Syncope and collapse (principal); I95.9 Hypotension, unspecified; E86.0 Dehydration; Z79.3 Long term (current) use of hormonal contraceptives
CPT/HCPCS: 36415; 70450; 71045; 80048; 80053; 81003; 81025; 82962; 83735; 84484; 85025; 87040; 93005; 93306; 96360; 96361; 99285; A9270; J7040; G0378